=== PATIENT | female | born 1970 | race Caucasian/White ===

== ENCOUNTER 2019-02-02 11:56 | Outpatient (CLI) | payer OTHER ==
--- NOTE | 2019-02-02 15:11 | XRAY Report ---
Reason: painful hallux Procedure Date: 02/02/2019 Accession Number: [id number] / [id number] Procedure: XRN - Toe(s) LT CPT Code: FULL RESULT: EXAM: LEFT TOE RADIOGRAPHY EXAM DATE: 02/02/2019 12:11 PM. CLINICAL HISTORY: Painful hallux. COMPARISON: None. TECHNIQUE: 3 views. FINDINGS: Bones: Normal. No fracture or bone lesion. Joints: Normal. No subluxations. Soft Tissues: Normal. No soft tissue swelling. No radiographic abnormalities of the nailbed. No radiopaque or radiolucent foreign bodies. IMPRESSION: Normal toe radiography. [facility]
== END 2019-02-02 11:57 | disposition home or self-care (01) ==
LOC: DI.N 11:56
PROVIDERS: ATTEND Podiatrist
DX: M79.675 Pain in left toe(s) (principal)
CPT/HCPCS: 73660